=== PATIENT | female | born 2000 | race Asian ===

== ENCOUNTER 2023-11-15 17:23 | Emergency (ER) | payer BC, SELFPAY ==
[2023-11-15 17:43] VITALS: BP 133/80; PULSE 100; RESP 20; TEMP 36.6; O2SAT 100
[2023-11-15 18:00] VITALS: O2SAT 100
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
[2023-11-15 21:07] VITALS: BP 113/74; PULSE 69; RESP 19; TEMP 36.9; O2SAT 100
== END 2023-11-15 21:08 | disposition home or self-care (01) ==
PROVIDERS: Emergency Provider Emergency Medicine
DX: T23.272A Burn of second degree of left wrist, initial encounter (principal); T23.262A Burn of second degree of back of left hand, initial encounter; T23.242A Burn of second degree of multiple left fingers (nail), including thumb, initial encounter; T31.0 Burns involving less than 10% of body surface; X10.2XXA Contact with fats and cooking oils, initial encounter; Y93.G3 Activity, cooking and baking
CPT/HCPCS: 16020; 99282